=== PATIENT | male | born 1950 | race Caucasian/White ===

== ENCOUNTER → 2017-12-13 | Outpatient (CLI) | payer OTHER ==
[~2017-12-13] MED LIST: AMITRIPTYLINE H25 M3 PO; AVAPRO75 MG PO; CO Q-10100 MG PO; LIPITOR40 MG PO; NORVASC5 MG PO; OXYCONTIN10 M1 PO; PAROXETINE HCL40 MG PO; VITAMIN D31000 UNI2 PO
--- NOTE | ~2017-12-13 | EKG ---
[address] [address] ELECTROCARDIOGRAM REPORT Name: DERECK SALDIVARDIA Hawley Room #: [facility]#: [id number] Admission: 12/13/17 Attend Phys: Maryann Lea MD Discharge: Date of : 52 Report #: [id number] THIS REPORT FOR: //name// [facility] Test Date: 2017-12-13 Test Time: 11:54:28 Pat Name: ADOLFO SALDIVAR Department: Room: Gender: [employer] Agent: Yoni CORNELL : 1950 Requested By: Maryann Lea Order Number: [id number] MD: Tonny Rowe Measurements Intervals [place] Rate: 70 P: 51 NH: 146 QRS: 55 QRSD: 95 T: 41 QT: 385 QTc: 416 Interpretive Statements Sinus rhythm Normal tracing Compared to ECG 08/04/2015 06:38:01 No significant changes Electronically Signed On 12-13-2017 17:07:17 CDT by Tonny Rowe [email or web address] <ELECTRONICALLY SIGNED> By: Tonny Rowe MD, [facility] 12/13/17 1707 1154 1154 Tonny Rowe MD, FACC /EPI
== END ==
LOC: CV 11:28
DX: Z01.810 Encounter for preprocedural cardiovascular examination (principal); I10 Essential (primary) hypertension

== ENCOUNTER 2018-02-26 14:47 | Emergency (ER) | payer OTHER ==
[~2018-02-26] VITALS: Ht 182.9 cm; Wt 96.6 kg
--- NOTE | ~2018-02-26 | EKG ---
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: [id number] : 1950 Requested By: Rosina Randall Order Number: [id number] MD: Calderon Melendez Measurements Intervals [place] Rate: 119 P: 48 ME: 173 QRS: 31 QRSD: 81 T: 26 QT: 298 QTc: 420 Interpretive Statements Sinus tachycardia Low voltage, precordial leads Compared to ECG 12/13/2017 11:54:28 Low QRS voltage now present Sinus rhythm no longer present Electronically Signed On 02-26-2018 17:28:44 CDT by Calderon Melendez [email or web address] <ELECTRONICALLY SIGNED> By: Calderon Melendez MD 02/26/18 1728 11 11 Calderon Melendez MD /ANA LUISA
[2018-02-26 16:06] LABS: URINE BILIRUBIN NEGATIVE (Negative); URINE BLOOD NEGATIVE (Negative); URINE CLARITY CLEAR; URINE COLOR YELLOW; URINE GLUCOSE-RANDOM* NEGATIVE (Negative); URINE KETONES NEGATIVE (Negative); URINE LEUKOCYTES-REFLEX NEGATIVE (Negative); URINE NITRITE-REFLEX NEGATIVE (Negative); URINE PROTEIN (DIPSTICK) NEGATIVE (Negative); URINE SPECIFIC GRAVITY >= 1.030 (1.005-1.035); URINE UROBILINOGEN 0.2 E.U./dl (0.2-1.0)
[2018-02-26 16:23] LABS: ABSOLUTE NEUTROPHILS 6.4 thou/uL (1.4-8.2); BASOPHILS 0.5 % (0.0-2.0); EOSINOPHILS 0.7 % (0.0-3.0); HEMOGLOBIN 14.4 gm/dL (14.0-18.0); LYMPHOCYTES 14.6 % (24.0-44.0); MCH 29.9 pg (26.0-34.0); MCHC 35.1 g/dL (28.0-37.0); MCV 85.2 fL (80.0-100.0); MONOCYTES 5.9 % (1.0-8.0); PLATELET COUNT 189 thou/uL (150-400); POLYS 78.3 % (36.0-66.0); RBC 4.81 mil/uL (4.50-6.00); RDW 13.2 % (10.5-14.5); WBC 8.2 thou/uL (4.0-11.0)
[2018-02-26] MEDS ORDERED: CYMBALTA20 MG PO (16:57)
[2018-02-26] MEDS ORDERED: SYNTHROID75 MCG PO (16:57)
[2018-02-26] MEDS ORDERED: SULINDAC 150 M150 MG PO (16:57)
[2018-02-26] MEDS ORDERED: SULINDAC 200MG200 M1 PO (17:00)
[2018-02-26] MEDS ORDERED: CYMBALTA30 MG PO (17:00)
[2018-02-26] MEDS ORDERED: OXYCONTIN15 MG PO (17:01)
[2018-02-26 17:11] LABS: CALCIUM 9.1 mg/dL (8.5-10.1); CREATININE 1.2 mg/dL (0.7-1.3); POTASSIUM 3.5 mmol/L (3.5-5.1)
[2018-02-26 17:26] LABS: AMP/METHAMP Negative (Negative); BARBITURATES Negative (Negative); BENZODIAZEPINES Negative (Negative); COCAINE Negative (Negative); METHADONE Negative (Negative); OPIATES POSITIVE (Negative); PCP Negative (Negative)
[2018-02-26] MEDS ORDERED: HYDROXYZINE HCL25 M2 PO (18:03)
== END 2018-02-26 19:40 | disposition home or self-care (01) ==
LOC: ER 14:47
PROVIDERS: Student in an Organized Health Care Education/Training Program
DX: R45.1 Restlessness and agitation (principal); F11.23 Opioid dependence with withdrawal; I10 Essential (primary) hypertension; Z87.891 Personal history of nicotine dependence